=== PATIENT | female | born 1975 | race Two or more races ===

== ENCOUNTER 2025-09-23 13:15 | Emergency (ER) | payer MEDICAID ==
[~2025-09-23] VITALS: Ht 154.9 cm; Wt 62.1 kg
[2025-09-23] MEDS ORDERED: KETOROLAC TROMETHAMINE 15 MG/ML VIAL ONE (14:01)
[2025-09-23] MEDS: KETOROLAC TROMETHAMINE 15 MG/ML VIAL IM ONE (14:19)
[2025-09-23] MEDS ORDERED: LIDO30AD10 TP (14:58)
[2025-09-23] MEDS ORDERED: METH-649 PO (14:58)
[2025-09-23] MEDS ORDERED: IBUP-1490 PO (14:58)
[2025-09-23 15:17] VITALS: BP 112/76; TEMP 98.1; O2SAT 99
== END 2025-09-23 15:18 | disposition home or self-care (01) ==
LOC: ER 13:34
DX: M54.2 Cervicalgia (principal); M54.9 Dorsalgia, unspecified; M25.511 Pain in right shoulder; M25.512 Pain in left shoulder; Z88.5 Allergy status to narcotic agent; V43.52XA Car driver injured in collision with other type car in traffic accident, initial encounter; Y93.89 Activity, other specified; Y92.410 Unspecified street and highway as the place of occurrence of the external cause; Y99.9 Unspecified external cause status
CPT/HCPCS: 99284; 96372; 72040; 72100; 73030 ×2; 84703; J1885